=== PATIENT | male | born 1980 | race Caucasian/White ===

== ENCOUNTER 2022-05-23 11:54 | Emergency (ER) | payer OTHER, SELFPAY ==
[2022-05-23 12:00] VITALS: BP 147/97; PULSE 76; RESP 18; O2SAT 99; BMI 26.2
--- NOTE | 2022-05-23 12:21 | ED.GENADULT ---
HPI - General Adult General Chief complaint: General Medical Stated complaint: burning/ loss of taste Time Seen by Provider: 05/23/22 12:05 Source: patient Mode of arrival: ambulatory Limitations: no limitations History of Present Illness HPI narrative: 41-year-old male presents to the ER for evaluation of decreased sense of taste for the last 10 days. His only other symptoms is increased mucus in his chest and throat in the mornings. He states toothpaste has been burning his tongue which is new. He otherwise says things taste less than they usually do. Smell is normal. No fever, chills, nasal congestion, sinus pressure, or other URI symptoms. No known sicks contacts. MD complaint: decreased sense of taste Onset (ago): day(s) (10) Location: mouth Radiation: non-radiation Severity: mild Relieving factors: none Exacerbating factors: none Associated symptoms: denies other symptoms Treatments prior to arrival: none Related Data Allergies Allergy/AdvReac Type Severity Reaction Status Date / Time Unable to Assess Allergy Unverified 05/23/22 12:06 Review of Systems Review of Systems: Constitutional: No Fever, No Chills ENT/Mouth: No sore throat, No Rhinorrhea, No Swallowing Difficulty, +Decreased sense of taste Cardiovascular: No Chest Pain, No SOB, No Orthopnea, No Edema Respiratory: No Cough, No Sputum, No Wheezing, No dyspnea Gastrointestinal: No Nausea, No Vomiting Musculoskeletal: No joint pain, No Myalgias Skin: No Skin Lesions, No rash Neuro: No Weakness, No Dizziness, No Headache Heme/Lymph: No Lymphadenopathy PMFSH Social History Social History Advance Directives: No Advance Directives Information Provided: Yes Physical Exam ED Vital Signs: Vital Signs - 24 hr 05/23/22 12:00 Pulse Rate 76 Respiratory Rate 18 Blood Pressure 147/97 H Pulse Oximetry 99 Oxygen Delivery Method Room Air BMI result Body Mass Index 26.2 Appearance: Alert. Oriented X3. No acute distress. HEENT: normal external inspection, normal inspection of the tongue without visible sores. moist mucus membranes. CVS: Normal heart rate and rhythm. Pulses normal. Respiratory: No respiratory distress. Lungs clear throughout. Skin: Skin warm and dry. Normal skin color. Normal skin turgor. No visible rashes. Extremities: normal inspection. Neuro: Oriented X 3. grossly normal, nonfocal Course Course Course Narrative: 41 y/o male presenting with decreased sense of taste for the last 10 days. No other symptoms. VSS and exam unremarkable. Most likely viral etiology. Will swab and call with the results. Patient agrees with plan. Encouraged to f/u with PCP for further evaluation if symptoms persist. Discharge Plan Discharge Clinical Impression: Decreased sense of taste Patient Disposition: Home, Self-Care Instructions: Viral Syndrome (ED) Additional Instructions: We will call you with the results of your viral swab. Follow up with your primary care doctor for further evaluation. Interventions: ED Discharge Assessment Last Done: 05/23/22 12:21
[2022-05-23 13:08] LABS: Influenza A PCR NEGATIVE (Negative); Influenza B PCR NEGATIVE (Negative); Resp Syncy Virus RNA Qual PCR NEGATIVE (Negative); SARS COV2 PCR INHOUSE NEGATIVE (Negative)
== END 2022-05-23 12:24 | disposition home or self-care (01) ==
PROVIDERS: Physician Assistant; Emergency Provider Student in an Organized Health Care Education/Training Program
DX: R43.9 Unspecified disturbances of smell and taste (principal); Z20.822 Contact with and (suspected) exposure to COVID-19
CPT/HCPCS: 0241U; 99282; 99283

== ENCOUNTER 2022-05-28 10:27 | Emergency (ER) | payer OTHER, SELFPAY ==
[2022-05-28 10:29] VITALS: BP 144/84; PULSE 105; RESP 16; TEMP 36.9; O2SAT 96; BMI 26.0
--- NOTE | 2022-05-28 10:44 | ED.GENADULT ---
HPI - General Adult General Chief complaint: Upper Respiratory Symptoms Stated complaint: fever, headache Time Seen by Provider: 05/28/22 10:43 Source: patient Mode of arrival: ambulatory Limitations: no limitations History of Present Illness HPI narrative: Patient is a 41 year old assigned male at with no reported medical history presenting to the emergency department today with a headache, fever, and a cough. Patient states that since yesterday he has had a fever, cough, and a headache. Patient denies any dizziness, lightheadedness, abdominal pain, nausea, vomiting, chills, blurry vision, double vision, loss of vision, chest pain, difficulty breathing, shortness of breath, back pain, night sweats, pain with urination, increased urinary frequency, increased urinary urgency, blood in his urine or stool, syncope or a near syncopal episode, recent trauma or falls, bowel incontinence, bladder incontinence, bowel retention, bladder retention, or any other complaints at this time. Onset (ago): day(s) (1) Severity: mild Severity scale (1-10): 2 Relieving factors: none Exacerbating factors: none Associated symptoms: cough and fever/chills Treatments prior to arrival: none Related Data Allergies Allergy/AdvReac Type Severity Reaction Status Date / Time No Known Allergies Allergy Verified 05/28/22 10:32 Review of Systems Constitutional: Constitutional: Reports no additional constitutional complaints, Denies chills, Reports fever(s), Reports headache(s) and Denies night sweats Eyes: Eyes: Reports no additional eye complaints, Denies blurry vision, Denies change in vision, Denies diplopia, Denies eye discharge, Denies loss of vision and Denies eye pain ENT: Denies dizziness and Reports headache(s) Cardiovascular: Cardiovascular: Reports no additional cardiovascular complaints, Denies chest pain, Denies lightheadedness, Denies Loss of Consciousness and Denies dyspnea Respiratory: Respiratory: Reports no additional respiratory complaints, Reports cough and Denies dyspnea Gastrointestinal: Gastrointestinal: Reports no additional gastrointestinal complaints, Denies abdominal pain, Denies melena, Denies hematochezia, Denies change in bowel habits and Denies change in stool character Genitourinary: Genitourinary: Reports no additional male genitourinary complaints, Denies hematuria, Denies oliguria, Denies difficulty urinating, Denies dysuria, Denies urinary frequency, Denies urinary hesitancy, Denies urinary incontinence and Denies urinary urgency Musculoskeletal: Musculoskeletal: Reports no additional musculoskeletal complaints, Denies numbness and Denies tingling Neurologic: Denies dizziness, Reports headache(s), Denies loss of vision, Denies numbness and Denies tingling Psychiatric: Psychiatric: Reports no additional psychiatric complaints Endocrine: Endocrine: Reports no additional endocrine complaints Hematologic/Lymphatic: Hematologic/Lymphatic: Reports no additional hematologic/lymphatic complaints Allergic/Immunologic: Allergic/Immunologic: Reports no additional allergic/immunologic complaints [facility] Past Medical History Attestation statement: The following information was validated with the patient. Source: old records reviewed and nursing notes reviewed Social History Social History Advance Directives: No Advance Directives Information Provided: No Physical Exam ED Vital Signs: Vital Signs - 24 hr 05/28/22 10:29 Temperature 98.5 F Pulse Rate 105 H Respiratory Rate 16 Blood Pressure 144/84 H Pulse Oximetry 96 Oxygen Delivery Method Room Air BMI result Body Mass Index 26.0 Const General: cooperative, no acute distress, alert and awake Nutritional Appearance: well nourished Orientation/consciousness: patient oriented x3 Limitations: no limitations HENMT Head: Yes normal to inspection and Yes atraumatic Ears: hearing grossly normal bilaterally and external ears normal General nose exam: Normal external nose present, no nasal discharge noted and no epistaxis Face and sinus: Yes normal facial exam, No abrasion and No laceration Mouth: Normal oral and palatal mucosa present, no drooling and no muffled voice Eyes General: appearance normal, both eyes and all related structures Periorbital: periorbital findings normal Eyelids: Yes eyelids normal Conjunctivae: conjunctivae normal Pupils: Equal, round and reactive pupils present EOM: EOMs intact bilaterally Neck Neck: Yes normal visual inspection, Yes full ROM and Yes no lymphadenopathy Chest Chest palpation & inspection: normal inspection of the chest Resp Effort & Inspection: normal respiratory effort and able to speak in complete sentences Auscultation: clear to auscultation bilaterally Cardio Rate: regular rate Rhythm: regular rhythm GI Inspection: Yes normal to inspection Palpation (GI): Soft to palpation, not firm, nontender and no guarding Neuro General: patient oriented x3 and moves all extremities Cranial nerves: Yes Equal, round and reactive pupils present Cognition (Neuro): normal cognition Motor exam (neuro): 5/5 motor strength present throughout Sensory Exam: Normal double simultaneous stimulation for sensation Coordination: [id number] test normal Extrem General: Yes normal to inspection, Yes full ROM and Yes capillary refill normal Psych Appearance: grossly normal Mental Status: mental status grossly normal Affect: normal affect Attitude: cooperative Thought process: Normal thought process present Thought content: Normal thought content present Insight: Good insight present (Psych) Medical Decision Making Medical Decision Making MDM Narrative: Patient is a 41 year old assigned male at with no reported medical history presenting to the emergency department today with a fever, cough, and headache. Patient's physical exam was unremarkable. Patient's influenza test was positive. I explained my physical exam findings as well as all test results to the patient. I answered all questions asked by the patient. I stressed the importance of the patient taking his medication as prescribed. I stressed the importance of the patient following up with his primary care provider. I stressed the importance of the patient returning to the emergency department immediately if his symptoms were to worsen or if he were to develop any dizziness, shortness of breath, difficulty breathing, chest pain, blurry vision, loss of vision, nausea, vomiting, abdominal pain, fever, chills, back pain, or any other complaints. Patient verbalized agreement and understanding with this treatment plan and discharge. Differential Diagnosis Differential Diagnoses: The differential diagnosis associated with the presentation includes influenza, URI, RSV, COVID-19 Lab Data [facility] Lab Attestation statement: I reviewed the patient's lab results. Labs: Lab Results 05/28/22 Range/Units 10:34 Influenza Type A (PCR) POSITIVE A (Negative) Influenza Type B (PCR) NEGATIVE (Negative) RSV RNA Qual (PCR) NEGATIVE (Negative) SARS-CoV-2 RNA (RT-PCR) NEGATIVE (Negative) Discharge Plan Discharge Clinical Impression: Influenza Patient Disposition: Home, Self-Care Instructions: Influenza (ED) Additional Instructions: Follow up with your primary care provider. Return to the emergency department immediately if your symptoms worsen or if you develop any dizziness, shortness of breath, difficulty breathing, chest pain, blurry vision, loss of vision, nausea, vomiting, abdominal pain, fever, chills, back pain, or any other complaints. Referrals: [facility] [Provider Group] (Call to establish and follow up with a primary care provider. If you already have a primary care provider, please follow up with them. ) [facility] [Provider Group] (Call to establish and follow up with a primary care provider. If you already have a primary care provider, please follow up with them. ) [facility] [Provider Group] (Call to establish and follow up with a primary care provider. If you already have a primary care provider, please follow up with them. ) Stand Alone Forms: Work/School Release Interventions: ED Discharge Assessment Last Done: 05/28/22 11:32 Discharge Date/Time: 05/28/22 11:33 Print Language: Venezuelan
[2022-05-28 11:15] LABS: Influenza A PCR POSITIVE (Negative); Influenza B PCR NEGATIVE (Negative); Resp Syncy Virus RNA Qual PCR NEGATIVE (Negative); SARS COV2 PCR INHOUSE NEGATIVE (Negative)
== END 2022-05-28 11:33 | disposition home or self-care (01) ==
PROVIDERS: Emergency Provider Student in an Organized Health Care Education/Training Program
DX: J10.1 Influenza due to other identified influenza virus with other respiratory manifestations (principal); R50.9 Fever, unspecified; R51.9 Headache, unspecified; R05.9 Cough, unspecified; Z20.822 Contact with and (suspected) exposure to COVID-19
CPT/HCPCS: 0241U; 99283

== ENCOUNTER 2023-02-12 10:02 | Emergency (ER) | payer OTHER, SELFPAY ==
--- NOTE | ~2023-02-12 | US_ITS ---
EXAMINATION: US VENOUS ULTRASOUND WITH DOPPLER LOWER EXTREMITY, LEFT CLINICAL INFORMATION: Leg pain following recent long flight. COMPARISON: None available. TECHNIQUE: Ultrasound of the deep veins is performed from the hip to the calf with compression sonography and color and pulse Doppler assessment. Spectral analysis with color-flow imaging is performed. FINDINGS: There is normal venous compression and respiratory variation and augmented flow. The visualized common femoral vein, superficial femoral vein, profunda femoral vein, popliteal vein, and the trifurcation region shows no evidence of deep venous thrombosis Fluid appears to dissect caudally from the popliteal fossa into the upper calf, suggestive of a ruptured Collins's cyst. US/US venous duplex LE LT IMPRESSION: 1. No evidence of deep vein thrombosis in the left femoral-popliteal system. 2. Fluid tracking caudally in the calf suggestive of a ruptured Collins's cyst.
--- NOTE | ~2023-02-12 | XR_ITS ---
EXAMINATION: XR KNEE, LEFT CLINICAL INFORMATION: Left knee pain. No trauma. COMPARISON: None available. TECHNIQUE: Four views of the left knee. FINDINGS: No fracture or joint effusion. Alignment is anatomic. Joint spaces are maintained. No abnormal soft tissue calcification. XR/XR knee LT 4V IMPRESSION: Normal left knee.
[2023-02-12 10:07] VITALS: BP 137/80; PULSE 81; RESP 18; TEMP 36.6; O2SAT 98; BMI 26.4
--- NOTE | 2023-02-12 11:28 | ED.GENADULT ---
HPI - General Adult General Chief complaint: Extremity Injury, Lower Stated complaint: Knee pain Time Seen by Provider: 02/12/23 11:37 Source: patient, RN notes reviewed and old records reviewed Mode of arrival: ambulatory Limitations: no limitations History of Present Illness HPI narrative: 42 year old male with history of gout on colchicine, presents to ED for evaluation of 4 day history of nontraumatic intermittent sharp but improving pain in his left popliteal region, worse with flexion/walking/at night time, intermittently radiating laterally from knee to lateral malleolus. No relief from Tylenol. Denies numbness, tingling, pain elsewhere in leg, fevers, chills, rashes. Denies any trauma, insect bites, change in exercise routine, reports he is generally sedentary. Onset (ago): day(s) Related Data Allergies Allergy/AdvReac Type Severity Reaction Status Date / Time No Known Allergies Allergy Verified 02/12/23 10:07 Review of Systems Review of Systems: Constitutional: No Fever, No Chills Cardiovascular: No Chest Pain, No SOB Respiratory: No Cough, No Wheezing Gastrointestinal: No Nausea, No Vomiting, No Diarrhea, No Constipation, No Abdominal pain Genitourinary: No Dysuria, No Flank Pain Musculoskeletal: +joint pain, No Myalgias, + Joint Swelling Skin: No Skin Lesions, No rash Neuro: No Weakness, No Numbness, No Paresthesias Yes all other systems are reviewed and are negative Constitutional: Constitutional: Reports as per [facility] Past Medical History Attestation statement: The following information was validated with the patient. Source: old records reviewed Social History Social History Advance Directives: No Advance Directives Information Provided: No Physical Exam ED Vital Signs: Vital Signs - 24 hr 02/12/23 10:07 Temperature 98 F Pulse Rate 81 Respiratory Rate 18 Blood Pressure 137/80 Pulse Oximetry 98 Oxygen Delivery Method Room Air BMI result Body Mass Index 26.4 Const General: cooperative, healthy appearing, comfortable and no acute distress Nutritional Appearance: average body habitus Orientation/consciousness: patient oriented x3 Limitations: no limitations HENMT Head: Yes normal to inspection and Yes atraumatic Ears: hearing grossly normal bilaterally General nose exam: Normal external nose present Face and sinus: Yes normal facial exam Eyes General: appearance normal, both eyes and all related structures EOM: EOMs intact bilaterally Neck Neck: Yes normal visual inspection and Yes no meningeal signs Resp Effort & Inspection: normal respiratory effort and no respiratory distress Cardio Rate: regular rate Peripheral pulses: dorsalis pedis present Skin Rashes: no rashes Wounds: no wounds Neuro General: patient oriented x3 and no meningeal signs Cranial nerves: Yes CN's II-XII intact bilaterally Gait exam (Neuro): Normal gait present Extrem Left lower extremity: knee Details: tenderness Location: of the popliteal fossa (+ttp), swelling (Mild) and abnormal ROM Details: pain with active ROM Details: with extension and with flexion; no lacerations, no ecchymosis, no deformity and no unusual warmth Course Course Course Narrative: This is an RME: Additional HPI, ROS, PE not included below will be deferred to primary provider. This is a 42-year-old male presenting to the emergency department complaints of left knee pain x4 days. Patient describes his pain as a fullness his left knee this will some mild left lateral lower leg pain. He has a curious woman XR knee LT 4V IMPRESSION: Normal left knee. US venous duplex LE LT IMPRESSION: 1. No evidence of deep vein thrombosis in the left femoral-popliteal system. 2. Fluid tracking caudally in the calf suggestive of a ruptured Collins's cyst. >> RAH wrap applied for comfort and stability. Results discussed with patient including worrisome signs and symptoms and strict return precautions, and when to return to the emergency department. They verbalized understanding and feel safe for discharge at this time. Medical Decision Making Medical Decision Making MDM Narrative: 42 year old male with history of gout on colchicine, presents to ED for evaluation of 4 day history of nontraumatic intermittent sharp but improving pain in his left popliteal region, worse with flexion/walking/at night time, intermittently radiating laterally from knee to lateral malleolus. + mild left knee swelling with popliteal tenderness. No erythema/warmth or crepitus PE reveals no obvious deformity, ecchymosis, rash, edema. Active and passive ROM limited by pain. Sensation and pulses intact. Concern for Collins's cyst vs tendonitis vs arthritis vs ligament or tendon injury. Lower suspicion for DVT vs fracture vs patella dislocation, septic joint or arthritis. Plan: US, XR, re-evaluate Differential Diagnosis Differential Diagnoses: The differential diagnosis associated with the presentation includes As above Independent Interpretation I performed an independent interpretation of an: Plain X-Ray and Ultrasound Radiology Impression Discussion of test interpretation with radiology: I have reviewed the radiologist's reading. External Record Review External record reviewed: Inpatient record, Office record, Outpatient record, Prior outpatient labs, Prior outpatient radiology, Primary care record and Outside ED record Tests considered The following testing was considered but not selected: As above Prescription Management I considered prescription management with: Pain Medication Discharge Plan Discharge Clinical Impression: Collins's cyst, ruptured Patient Disposition: Home, Self-Care Instructions: Bakers Cyst (ED) Additional Instructions: Your x-rays unremarkable Your ultrasound shows some fluid behind her knee suggestive of a ruptured Collins's cyst Wear Rah wrap for comfort and stability Take Tylenol Motrin as needed Follow-up with her doctor Referrals: Physician,Amelie J [Primary Care Provider] - 5 days
== END 2023-02-12 12:51 | disposition home or self-care (01) ==
PROVIDERS: Emergency Provider Emergency Medicine
DX: M66.0 Rupture of popliteal cyst (principal); M79.662 Pain in left lower leg
CPT/HCPCS: 73564; 93971; 99282; 99284

== ENCOUNTER 2024-08-09 22:26 | Emergency (ER) | payer OTHER, SELFPAY ==
--- NOTE | ~2024-08-09 | XR_ITS ---
CLINICAL HISTORY: pain s p injury 3 view left hand Comparison: None Findings: Bones intact. No dislocations. No significant loss of joint space or osteophytes. No erosions. IMPRESSION: 1. No acute findings This document has been electronically signed by: Annia Land MD on 08/09/2024 23:36:21
[2024-08-09 22:36] VITALS: BP 135/97; PULSE 90; RESP 18; TEMP 36.6; O2SAT 96; BMI 27.6
[2024-08-10 01:57] VITALS: BP 136/96; PULSE 85; RESP 17; O2SAT 96
--- NOTE | 2024-08-10 03:16 | ED_ITS ---
HPI - Extremity Problem General Chief complaint: Extremity Injury, Upper Stated complaint: L ring finger lac Time Seen by Provider: 08/10/24 01:52 Source: patient Limitations: no limitations History of Present Illness ED Provider: Candy Massey PA-C HPI Narrative: 43-year-old male presents with left ring finger injury. Patient was working on his car, and sustained a crush injury. He is unable to take his ring off the ring finger. He has a skin tear with macerated tissue. Tetanus not up-to-date, the patient declines being vaccinated. Related Data Previous Rx's ?Medication ?Instructions ?Recorded cephalexin 500 mg capsule 500 mg PO QID #27 caps 08/10/24 Allergies Allergy/AdvReac Type Severity Reaction Status Date / Time No Known Allergies Allergy Verified 08/09/24 22:45 Review of Systems Review of Systems: Yes all other systems are reviewed and are negative Constitutional: Constitutional: Denies fever(s) Musculoskeletal: Musculoskeletal: Reports arthralgias and Reports joint swelling Integumentary/Breasts: Skin/Breast: Reports wounds PMFSH Past Medical History Attestation statement: The following information was validated with the patient. Social History Social History Smoked in Last 30 Days: No Use of substances other than those prescribed or required for medical reasons: No Advance Directives: No Physical Exam Vital Signs: Vital Signs: Last Vital Signs Temp 97.9 F 08/10/24 03:24 Pulse 72 08/10/24 03:24 Resp 18 08/10/24 03:24 BP 146/69 H 08/10/24 03:24 Pulse Ox 99 08/10/24 03:24 O2 Del Method Room Air 08/10/24 03:24 BMI result Body Mass Index 27.6 Const: Other: Alert well-appearing Orientation/consciousness: patient oriented x3 Resp: Effort & Inspection: normal respiratory effort Cardio: Other: Normal peripheral perfusion Neuro: General: patient oriented x3, gait normal, no focal motor deficits and CN's II-XI intact bilaterally Extrem: Other: Skin tear with macerated tissue noted over the dorsum of the left ring finger, full range of motion at MCP PIP DI P, no laceration to repair. We had to physically cut the ring off the finger Psych: Other: Cooperative Medical Decision Making Medical Decision Making MDM Narrative: 43-year-old male presents with left ring finger injury. Patient was working on his car, and sustained a crush injury. He is unable to take his ring off the ring finger. He has a skin tear with macerated tissue. Tetanus not up-to-date, the patient declines being vaccinated. No chronic issues History: Per patient I have considered the following differential diagnoses: Fracture, open fracture, dislocation, laceration, contusion, crush injury, Plan: X-ray obtained from triage there was no communication with the bone. He has macerated tissue there was nothing to approximate, we will clean the area and dress it. He is declining a tetanus vaccine. We had to manually cut the ring from the finger. Covering with a course of antibiotics X-ray left hand:indings: Bones intact. No dislocations. No significant loss of joint space or osteophytes. No erosions. IMPRESSION: 1. No acute findings Discharge Plan Discharge Clinical Impression: Crushing injury of left ring finger Patient Disposition: Home, Self-Care Instructions: Crush Injury (ED) Additional Instructions: The x-ray of your hand was negative for fracture or dislocation. You sustained a crush injury. See home care instructions. The ring was removed with a ring cutter. You need to check in with your primary care provider to make sure that your tetanus vaccine is up-to-date. We are treating you with prophylactic antibiotics to help prevent infection. Take them as directed. Prescriptions: New cephalexin 500 mg capsule 500 mg PO QID Qty: 27 0RF Stand Alone Forms: Work/School Release Discharge Date/Time: 08/10/24 03:34 Print Language: Surinamese
[2024-08-10 03:24] VITALS: BP 146/69; PULSE 72; RESP 18; TEMP 36.6; O2SAT 99
== END 2024-08-10 03:34 | disposition home or self-care (01) ==
PROVIDERS: Emergency Provider Emergency Medicine
DX: S67.195A Crushing injury of left ring finger, initial encounter (principal); Y28.9XXA Contact with unspecified sharp object, undetermined intent, initial encounter; Y93.9 Activity, unspecified; Y92.9 Unspecified place or not applicable; Y99.8 Other external cause status
CPT/HCPCS: 73130; 99283; 99284

== ENCOUNTER → 2024-08-09 22:40 | Outpatient (BNV) | payer OTHER, SELFPAY | PROVIDERS: Visit Provider Radiology Diagnostic Radiology | DX: M79.642 Pain in left hand (principal) | CPT/HCPCS: 73130 ==